=== PATIENT | female | born 1935 | race Caucasian/White ===

== ENCOUNTER 2022-08-03 07:00 | Inpatient (IN) | payer MEDICARE ==
--- NOTE | 2022-08-03 07:31 | ED ---
Fall HPI - General Chief Complaint: Fall Stated Complaint: Fall-Hip injury Time Seen by Provider: 08/03/22 07:01 Source: patient, EMS, RN notes reviewed Mode of arrival: EMS Limitations: physical limitation - History of Present Illness Initial Comments: This is an 87-year-old female presents emergency Department chief complaint of right hip pain, injury. Patient states she was coming back from the bathroom when she felt she lost her balance or her leg gave out falling onto her right hip. Patient denies having any head injury. Patient states that her only current complaint is right hip pain. Patient states that she was unable to get up and which staff came and helped her up. Patient has had no prior hip, knee surgery. Denies any back pain. Denies any chest pain or shortness of breath. Patient does have a history of hypertension, glaucoma, arthritis she did not take her blood pressure medicines this morning. - Related Data Home Medications Medication Instructions Recorded Confirmed Aspirin 81 mg PO DAILY 08/03/22 08/03/22 Atorvastatin [Lipitor] 40 mg PO DAILY 08/03/22 08/03/22 Calcium Carbonate 1,000 mg PO DAILY 08/03/22 08/03/22 Cholecalciferol [Vitamin D3 (25 50 mcg PO DAILY 08/03/22 08/03/22 Mcg = 1000 Iu)] Diclofenac Sodium Gel [Voltaren 2 gm TOPICAL QID PRN 08/03/22 08/03/22 Gel] Levothyroxine Sodium [Synthroid] 75 mcg PO DAILY 08/03/22 08/03/22 Losartan Potassium [Cozaar] 100 mg PO DAILY 08/03/22 08/03/22 Multivit-Min/Iron/Folic/Lutein 1 tab PO DAILY 08/03/22 08/03/22 [Centrum Silver Women Tablet] [place]-3/Dha/Epa/Fish Oil [Fish Oil 1 cap PO DAILY 08/03/22 08/03/22 1,000 mg Softgel] carvediloL [Coreg] 3.125 mg PO BID 08/03/22 08/03/22 hydroCHLOROthiazide 12.5 mg PO DAILY 08/03/22 08/03/22 Allergies Allergy/AdvReac Type Severity Reaction Status Date / Time shellfish derived [Shellfish] Allergy Rash/Hives Verified 08/03/22 08:31 Review of Systems ROS Statement: Those systems with pertinent positive or pertinent negative responses have been documented in the HPI. ROS Other: All systems not noted in ROS Statement are negative. 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 Absent: scleral icterus, conjunctival injection, periorbital swelling ENT exam: Present: normal exam, mucous membranes moist Respiratory exam: Present: normal lung sounds bilaterally. Absent: respiratory distress, wheezes, rales, rhonchi, stridor Cardiovascular Exam: Present: regular rate, normal rhythm, normal heart sounds. Absent: systolic murmur, diastolic murmur, rubs, gallop, clicks GI/Abdominal exam: Present: soft, normal bowel sounds. Absent: distended, tenderness, guarding, rebound, rigid Extremities exam: Present: other (There is shortening of the right leg, mild rotation, neurovascular intact there is diffuse tenderness of the right hip and pain with range of motion of the right hip very limited) Neurological exam: Present: alert, oriented X3, CN II-XII intact Course Vital Signs 08/03/22 08/03/22 07:02 08:31 Pulse Rate 65 57 L Respiratory 18 18 Rate Blood Pressure 155/101 188/89 O2 Sat by Pulse 100 99 Oximetry Medical Decision Making - Lab Data Result diagrams: 08/03/22 08:35 - EKG Data -: EKG Interpreted by Me EKG Comments: Was pt. sent in by a medical professional or institution (, PA, CABLE TV INSTALLER, urgent care, hospital, or fpc...) When possible be specific @ -no Did you speak to anyone other than the patient for history (EMS, parent, family, police, friend...)? What history was obtained from this source @ -EMS regarding prehospital care Did you review nursing and triage notes (agree or disagree)? Why? @ -I reviewed and agree with nursing and triage notes Were old charts reviewed (outside hosp., previous admission, EMS record, old EKG, old radiological studies, urgent care reports/EKG's, fpc records)? Report findings @ -No old charts were reviewed Differential Diagnosis (chest pain, altered mental status, abdominal pain women, abdominal pain men, vaginal bleeding, weakness, fever, dyspnea, syncope, headache, dizziness, GI bleed, back pain, seizure, CVA, palpatations, mental health, musculoskeletal)? @ -Fall, right hip fracture, hip contusion, right hip dislocation EKG interpreted by me (3pts min.). @ -EKG 48:19 sinus bradycardia rate of 56 DC 200/88 QT/QTC 434/424 X-rays interpreted by me (1pt min.). @ -None done CT interpreted by me (1pt min.). @ -None done U/S interpreted by me (1pt. min.). @ -None done What testing was considered but not performed or refused? (CT, X-rays, U/S, labs)? Why? @ -None What meds were considered but not given or refused? Why? @ -None Did you discuss the management of the patient with other professionals (professionals i.e. , PA, CABLE TV INSTALLER, lab, RT, psych nurse, social services assistant, payroll and benefits specialist, te acher, home school liaison officer, case advocate)? Give summary @ -Dr. Emerson for admission for right hip fracture] Was smoking cessation discussed for >3mins.? @ -No Was critical care preformed (if so, how long)? @ -No Were there social determinants of health that impacted care today? How? (Homelessness, low income, unemployed, alcoholism, drug addiction, transportation, low edu. Level, literacy, decrease access to med. care, half-way, rehab)? @ -No Was there de-escalation of care discussed even if they declined (Discuss DNR or withdrawal of care, Hospice)? DNR status @ -No What co-morbidities impacted this encounter? (DM, HTN, Smoking, COPD, CAD, Cancer, CVA, ARF, Chemo, Hep., AIDS, mental health diagnosis, sleep apnea, morbid obesity)? @ -Hypertension Was patient admitted / discharged? Hospital course, mention meds given and route, prescriptions, significant lab abnormalities, going to OR and other pertinent info. @ -Admitted patient has right hip fracture patient will be medically cleared patient is stable at this time. Undiagnosed new problem with uncertain prognosis? @ -No Drug Therapy requiring intensive monitoring for toxicity (Heparin, Nitro, Insulin, Cardizem)? @ -No Were any procedures done? @ -No Diagnosis/symptom? @ -Fall right IT fracture Acute, or Chronic, or Acute on Chronic? @ -Acute Uncomplicated (without systemic symptoms) or Complicated (systemic symptoms)? @ -Uncomplicated Side effects of treatment? @ -No Exacerbation, Progression, or Severe Exacerbation? @ -No Poses a threat to life or bodily function? How? (Chest pain, [place], MT, pneumonia, PE, COPD, DKA, ARF, appy, cholecystitis, CVA, Diverticulitis, Homicidal, Suicidal, threat to staff... and all critical care pts) @ -No Disposition Clinical Impression: Fall, Hip fracture, right Disposition: ADMITTED IP TO THIS [facility] Time of Disposition: 08:05
[2022-08-03] MEDS ORDERED: NALOXONE 0.4 MG/ML 1 ML VIAL IV PRN (08:05)
[2022-08-03] MEDS ORDERED: ONDANSETRON 4 MG/2 ML VIAL IVP PRN (08:05)
[2022-08-03] MEDS ORDERED: HYDROcodone/APAP 5-325MG 1 EACH TAB PO PRN (08:05)
--- NOTE | 2022-08-03 08:21 | XR ---
EXAMINATION TYPE: XR Hip RT and AP Pelvis DATE OF EXAM: 08/03/2022 CLINICAL HISTORY: pain TECHNIQUE: AP and frogleg views of the right hip are obtained. No view of the pelvis is also submitt ed. COMPARISON: None. FINDINGS: There is a three-part right sided intertrochanteric fracture. No additional fractures seen. Mild degenerative joint space narrowing. IMPRESSION: 1. There is a three-part right sided intertrochanteric fracture. ICD 10 FRACTURE, INITIAL EVALUATION
[2022-08-03] MEDS: HYDROmorphone 0.5 MG/0.5 ML SYRINGE IVP PRN ×4 (08:34→22:54)
[2022-08-03 08:59] LABS: ALT 23 U/L (4-34); AST 26 U/L (14-36); African American GFR (CKD) >90 (>60 ml/min/1.73 sqM); Albumin 3.3 g/dL (3.5-5.0); Alkaline Phosphatase 80 U/L (38-126); Anion Gap 5 mmol/L; Blood Urea Nitrogen 17 mg/dL (7-17); Calcium 8.5 mg/dL (8.4-10.2); Carbon Dioxide 27 mmol/L (22-30); Chloride 105 mmol/L (98-107); Glucose 123 mg/dL (74-99); Non-African American GFR(CKD) 85 (>60 ml/min/1.73 sqM); Potassium 3.4 mmol/L (3.5-5.1); Sodium 137 mmol/L (137-145); Total Bilirubin 0.4 mg/dL (0.2-1.3); Total Protein 6.1 g/dL (6.3-8.2)
--- NOTE | 2022-08-03 09:00 | XR ---
EXAMINATION TYPE: XR chest 1V DATE OF EXAM: 08/03/2022 HISTORY: Shortness of breath. COMPARISON: None TECHNIQUE: Single view of the chest is submitted. FINDINGS: Demonstrated are scattered senescent parenchymal change. There is no evidence for focal infiltrate. The heart is stable. Hilar and mediastinal structures are within normal limits. Degenerative changes are seen of the dorsal spine. IMPRESSION: 1. Chronic changes without evidence for acute pulmonary disease.
[2022-08-03 09:14] LABS: Prothrombin Time 10.7 sec (9.0-12.0)
[2022-08-03 09:16] LABS: Basophils % (A) 1 %; Eosinophils # (A) 0.1 k/uL (0-0.7); Eosinophils % (A) 2 %; HCT 34.7 % (34.0-46.0); HGB 11.8 gm/dL (11.4-16.0); Lymphocytes % (A) 15 %; MCHC 34.1 g/dL (31.0-37.0); MCV 90.9 fL (80.0-100.0); Mean Platelet Volume 9.3; Monocytes # (A) 0.4 k/uL (0-1.0); Monocytes % (A) 7 %; Neutrophils # (A) 4.7 k/uL (1.3-7.7); Neutrophils % (A) 74 %; Platelet Count 100 k/uL (150-450); RBC 3.82 m/uL (3.80-5.40); WBC 6.4 k/uL (3.8-10.6)
[2022-08-03 09:25] LABS: Partial Thromboplastin Time 19.9 sec (22.0-30.0)
[2022-08-03 10:00] LABS: Appearance,Urine Clear (Clear); Bilirubin,Urine Negative (Negative); Blood,Urine Negative (Negative); Color,Urine Light Yellow; Glucose,Urine (UA) Negative (Negative); Ketones,Urine Negative (Negative); Leukocyte Esterase,Urine Negative (Negative); Nitrite,Urine Negative (Negative); Protein,Urine Negative (Negative); Specific Gravity,Urine 1.007 (1.001-1.035); Urobilinogen,Urine <2.0 mg/dL (<2.0)
[2022-08-03] MEDS ORDERED: hydroCHLOROthiazide 12.5 MG CAP PO SCH (10:29)
[2022-08-03] MEDS: ATORVASTATIN 40 MG TAB PO SCH (11:07)
[2022-08-03] MEDS: carvediloL 3.125 MG TAB PO SCH ×2 (11:07→17:51)
--- NOTE | 2022-08-03 13:04 | P.HPOR ---
History of Present Illness H&P Date: 08/03/22 Chief Complaint: Right hip fracture. This is a pleasant 87-year-old female who fell when getting up to the bathroom in the middle the night. She states that her right leg gave out on her causing her to fall onto her right hip. She was brought to the emergency department via EMS and we are consulted for orthopedic evaluation. She is admitted to our service for surgical intervention and care. Past Medical History Past Medical History: Hypertension Additional Past Medical History / Comment(s): osteopoenia, hypothyroid, arthritis Additional Past Surgical History / Comment(s): Melanoma removed from face 2021 Smoking Status: Never smoker Past Alcohol Use History: None Reported Past Drug Use History: None Reported Medications and Allergies Home Medications Medication Instructions Recorded Confirmed Type Aspirin 81 mg PO DAILY 08/03/22 08/03/22 History Atorvastatin [Lipitor] 40 mg PO DAILY 08/03/22 08/03/22 History Calcium Carbonate 1,000 mg PO DAILY 08/03/22 08/03/22 History Cholecalciferol [Vitamin D3 (25 50 mcg PO DAILY 08/03/22 08/03/22 History Mcg = 1000 Iu)] Diclofenac Sodium Gel [Voltaren 2 gm TOPICAL QID PRN 08/03/22 08/03/22 History Gel] Levothyroxine Sodium [Synthroid] 75 mcg PO DAILY 08/03/22 08/03/22 History Losartan Potassium [Cozaar] 100 mg PO DAILY 08/03/22 08/03/22 History Multivit-Min/Iron/Folic/Lutein 1 tab PO DAILY 08/03/22 08/03/22 History [Centrum Silver Women Tablet] [place]-3/Dha/Epa/Fish Oil [Fish Oil 1 cap PO DAILY 08/03/22 08/03/22 History 1,000 mg Softgel] carvediloL [Coreg] 3.125 mg PO BID 08/03/22 08/03/22 History hydroCHLOROthiazide 12.5 mg PO DAILY 08/03/22 08/03/22 History Allergies Allergy/AdvReac Type Severity Reaction Status Date / Time shellfish derived [Shellfish] Allergy Rash/Hives Verified 08/03/22 08:31 Physical Examination This is an 79-year-old female in no acute distress. She is alert and oriented 3. Exam of the head and neck reveal no obvious deformity. She has full cervical spine motion without difficulty or pain. She is nontender over the cervical spine or paraspinal musculature. Exam of the upper extremities reveals no obvious deformity. She has fairly good motion to bilateral shoulders, elbows, wrists and fingers. Neurovascular status to the upper extremities is intact. Exam of the lower extremity reveals shortening and external rotation to the right leg. She has full foot and ankle motion bilaterally without difficulty or pain. Pedal pulses are +2/4 bilaterally. Neurovascular status to the lower extremities is intact. Results X-rays of the pelvis and right hip reveal a comminuted three-part Intertrochanteric fracture of the right hip with displacement. No other fractures identified. - Labs Labs: Abnormal Lab Results - Last 24 Hours (Table) 08/03/22 08/03/22 08/03/22 Range/Units 08:35 08:35 08:35 Plt Count 100 L (150-450) k/uL APTT 19.9 L (22.0-30.0) sec Potassium 3.4 L (3.5-5.1) mmol/L Glucose 123 H (74-99) mg/dL Total Protein 6.1 L (6.3-8.2) g/dL Albumin 3.3 L (3.5-5.0) g/dL H & H 08/03/22 Range/Units 08:35 Hgb 11.8 (11.4-16.0) gm/dL Hct 34.7 (34.0-46.0) % Coagulation 08/03/22 Range/Units 08:35 INR 1.0 (<1.2) Result Diagrams: 08/03/22 08:35 08/03/22 08:35 Assessment and Plan (1) Intertrochanteric fracture of right hip Current Visit: Yes Status: Acute Code(s): S72.141A - DISPLACED INTERTROCHAN TERIC FRACTURE OF RIGHT FEMUR, INIT SNOMED Code(s): 448193578 (2) Hip fracture, right Current Visit: Yes Status: Acute Code(s): S72.001A - FRACTURE OF UNSP PART OF NECK OF RIGHT FEMUR, INIT SNOMED Code(s): 347066427 Plan: The clinical and x-ray findings are discussed with the patient. She will be admitted to our service for surgical intervention. It is recommended she undergo closed reduction with insertion of intertrochanteric nail of the right hip. We are waiting medical clearance. She is tentatively scheduled for tomorrow morning for surgery. We discussed the potential need for inpatient rehabilitation postoperatively.
[2022-08-03] MEDS ORDERED: POTASSIUM CHLORIDE ER 20 MEQ TAB.ER PO STA (13:48)
[2022-08-03] MEDS ORDERED: DEXTROSE 50% SYRINGE 50 ML IVP PRN ×2 (13:49)
--- NOTE | 2022-08-03 13:52 | P.CONS ---
History of Present Illness - Reason for Consult Consult date: 08/03/22 - History of Present Illness Patient is a 87-year-old female with history of hypertension, hypothyroidism, dyslipidemia presenting after a fall. She claims that happened when she got up in the middle of the night to go to the bathroom. She claims that her right leg gave out causing her to fall to her right hip. She currently has significant pain in the right hip, but denies any chest pain, shortness of breath, abdominal pain, nausea, vomiting, diarrhea, constipation, or urinary complaints. She had a urinary catheter placed while in the ED. She has been hypertensive while in the ED, normal pulse rate, saturating well on room air. Laboratory workup was significant for platelet count upon., Po tassium of 3.4, glucose 123, urinalysis negative. Chest x-ray showed no acute process. EKG showed sinus bradycardia. Right hip x-ray showed three-part right-sided intertrochanteric fracture. Patient admitted to orthopedic surgery, [facility] has been consulted for medical management.. Pertinent positives and negatives as discussed in HPI, a complete review of systems was performed and all other systems are negative. Patient seen and examined at bedside. Vital signs reviewed General: nontoxic, no distress, appears at stated age Derm: warm, dry Head: atraumatic, normocephalic, symmetric Eyes: EOMI, no lid lag, anicteric sclera, pupils equal round reactive to light ENT: Nose and ears atraumatic Neck: No thyromegaly, supple Mouth: no lip lesion, mucus membranes moist Cardiovascular: S1S2 reg, no murmur, no edema Lungs: clear to auscultation bilateral, no rhonchi, no rales, no wheeze, no accessory muscle use Abdominal: soft, nontender to palpation, no guarding, no appreciable organomegaly Ext: Right lower extremity unable to move due to pain, externally rotated Neuro: CN II-XII grossly intact Psych: Alert, oriented, appropriate affect Assessment/Plan: Preoperative evaluation Fall Traumatic right intertrochanteric fracture Uncontrolled hypertension Hypokalemia Hyperglycemia Sinus bradycardia Hypothyroidism Dyslipidemia -Based on NSQIP, she has below average risk for her age for serious complications (6.1%), any complication (7.9%). -She does have a high risk of discharge to nursing or rehab facility at 67.5% -She has a history of TIA, but no residual deficits -Losartan and hydrochlorothiazide held for now, as it can increase risk for renal complication and intraoperative hypotension -Continue carvedilol 3.125 twice a day, started patient on amlodipine 5 mg daily -Her hypertension may also be related to pain -it may be useful to discontinue hydrochlorothiazide altogether, as it is a high risk medication for geriatric population. -Currently pain controlled on IV Dilaudid, oral [place] -Oral potassium 40 mEq ordered -Sliding scale insulin ordered, A1c pending -Sinus bradycardia likely the setting of beta manolo, asymptomatic -Continue levothyroxine and atorvastatin -Patient is medically optimized for surgery tomorrow Thank you for allowing us to participate in the care of this pleasant patient. Do not hesitate to contact us with questions. Someone can be reached from the [facility] hospitalist group all hours of the day at [phone] or via [facility]. Past Medical History Past Medical History: Hypertension Additional Past Medical History / Comment(s): osteopoenia, hypothyroid, arthritis Additional Past Surgical History / Comment(s): Melanoma removed from face 2021 Smoking Status: Never smoker Past Alcohol Use History: None Reported Past Drug Use History: None Reported Medications and Allergies Home Medications Medication Instructions Recorded Confirmed Type Aspirin 81 mg PO DAILY 08/03/22 08/03/22 History Atorvastatin [Lipitor] 40 mg PO DAILY 08/03/22 08/03/22 History Calcium Carbonate 1,000 mg PO DAILY 08/03/22 08/03/22 History Cholecalciferol [Vitamin D3 (25 50 mcg PO DAILY 08/03/22 08/03/22 History Mcg = 1000 Iu)] Diclofenac Sodium Gel [Voltaren 2 gm TOPICAL QID PRN 08/03/22 08/03/22 History Gel] Levothyroxine Sodium [Synthroid] 75 mcg PO DAILY 08/03/22 08/03/22 History Losartan Potassium [Cozaar] 100 mg PO DAILY 08/03/22 08/03/22 History Multivit-Min/Iron/Folic/Lutein 1 tab PO DAILY 08/03/22 08/03/22 History [Centrum Silver Women Tablet] [place]-3/Dha/Epa/Fish Oil [Fish Oil 1 cap PO DAILY 08/03/22 08/03/22 History 1,000 mg Softgel] carvediloL [Coreg] 3.125 mg PO BID 08/03/22 08/03/22 History hydroCHLOROthiazide 12.5 mg PO DAILY 08/03/22 08/03/22 History Allergies Allergy/AdvReac Type Severity Reaction Status Date / Time shellfish derived [Shellfish] Allergy Rash/Hives Verified 08/03/22 08:31 Physical Exam Vitals: Vital Signs Pulse Resp BP Pulse Ox 08/03/22 10:26 60 18 171/80 98 08/03/22 08:31 57 L 18 188/89 99 08/03/22 07:02 65 18 155/101 100 Intake and Output 08/02/22 08/03/22 08/03/22 22:59 06:59 14:59 Other: Weight 61.235 kg Results CBC & Chem 7: 08/03/22 08:35 08/03/22 08:35 Labs: Abnormal Lab Results - Last 24 Hours (Table) 08/03/22 08/03/22 08/03/22 Range/Units 08:35 08:35 08:35 Plt Count 100 L (150-450) k/uL APTT 19.9 L (22.0-30.0) sec Potassium 3.4 L (3.5-5.1) mmol/L Glucose 123 H (74-99) mg/dL Total Protein 6.1 L (6.3-8.2) g/dL Albumin 3.3 L (3.5-5.0) g/dL
[2022-08-03] MEDS: amLODIPine 5 MG TAB PO SCH (14:00)
[2022-08-03 14:27] LABS: Glucose,Whole Blood 133 mg/dL (70-110)
[2022-08-03 16:56] LABS: Glucose,Whole Blood 139 mg/dL (70-110)
[2022-08-03] MEDS ORDERED: INSULIN ASPART (NovoLOG) 100 UNIT/ML VIAL SQ SCH (17:30)
[2022-08-03] MEDS ORDERED: carvediloL 3.125 MG TAB PO SCH (17:30)
[2022-08-04] MEDS: HYDROmorphone 0.5 MG/0.5 ML SYRINGE IVP PRN ×5 (03:49→21:52)
[2022-08-04] MEDS: carvediloL 3.125 MG TAB PO SCH ×2 (06:47→16:31)
[2022-08-04] MEDS: LEVOTHYROXINE 75 MCG TAB PO SCH (06:47)
[2022-08-04] MEDS: amLODIPine 5 MG TAB PO SCH (07:55)
[2022-08-04] MEDS: CHOLECALCIFEROL 25 MCG (1000 IU) TABLET PO SCH (07:56)
[2022-08-04] MEDS: ATORVASTATIN 40 MG TAB PO SCH (07:56)
[2022-08-04] MEDS: CALCIUM CARBONATE 500 MG CHEWABLE PO SCH (07:56)
[2022-08-04] MEDS ORDERED: hydroCHLOROthiazide 12.5 MG CAP PO SCH (09:00)
[2022-08-04] MEDS ORDERED: LOSARTAN 50 MG TAB PO SCH (09:00)
[2022-08-04] MEDS ORDERED: ATORVASTATIN 40 MG TAB PO SCH (09:00)
--- NOTE | 2022-08-04 11:19 | P.PN ---
Subjective Progress Note Date: 08/04/22 Subjective: Patient seen and examined at bedside. No acute events overnight. She claims that she continues to have pain in her right hip, but denies any other pain, or complaints. Pertinent positives and negatives as discussed above, a complete review of systems was performed and all other systems are negative. Vitals Signs Reviewed. General: nontoxic, no distress, appears at stated age Derm: warm, dry Head: atraumatic, normocephalic, symmetric Eyes: EOMI, no lid lag, anicteric sclera, pupils equal round reactive to light ENT: Nose and ears atraumatic Neck: No thyromegaly, supple Mouth: no lip lesion, mucus membranes moist Cardiovascular: S1S2 reg, no murmur, no edema Lungs: clear to auscultation bilateral, no rhonchi, no rales, no wheeze, no accessory muscle use Abdominal: soft, nontender to palpation, no guarding, no appreciable organomegaly Ext: Right lower extremity unable to move due to pain, externally rotated Neuro: CN II-XII grossly intact Psych: Alert, oriented, appropriate affect Data Reviewed Today: No new labs Blood pressure has been stable around systolic of 117/69 Assessment and Plan: Preoperative evaluation Fall Traumatic right intertrochanteric fracture Uncontrolled hypertension Hypokalemia on admission Hyperglycemia, prediabetes Hypothyroidism Dyslipidemia -Based on NSQIP, she has below average risk for her age for serious complicati ons (6.1%), any complication (7.9%). -She does have a high risk of discharge to nursing or rehab facility at 67.5% -She has a history of TIA, but no residual deficits -Has a history of hysterectomy, no postsurgical complications -Losartan and hydrochlorothiazide held for now, as it can increase risk for renal complication and intraoperative hypotension -Continue carvedilol 3.125 twice a day, started patient on amlodipine 5 mg daily (although patient does have a history of lower extremity edema in the past, but she would like to try again) -Blood pressure not well controlled, discontinue hydrochlorothiazide at the time discharge -Currently pain controlled on IV Dilaudid, oral [place] -Not on any insulin therapy -Continue levothyroxine and atorvastatin -Patient is medically optimized for surgery today Resolved: Sinus bradycardia Thank you for allowing us to participate in the care of this pleasant patient. Do not hesitate to contact us with questions. Someone can be reached from the [facility] hospitalist group all hours of the day at [phone] or via [employer]. Objective - Vital Signs Vital signs: Vital Signs Temp 98.0 F 08/04/22 07:20 Pulse 71 08/04/22 07:20 Resp 16 08/04/22 07:20 BP 106/59 08/04/22 07:20 Pulse Ox 96 08/04/22 07:20 FiO2 Intake & Output 08/03/22 08/04/22 08/04/22 18:59 06:59 18:59 Output Total 100 1500 Balance -100 -1500 Weight 61.235 kg Output: Urine 100 1500 Other: Voiding Method Indwelling Catheter Indwelling Catheter - Labs CBC & Chem 7: 08/03/22 08:35 08/03/22 08:35 Labs: Abnormal Lab Results - Last 24 Hours (Table) 08/03/22 08/03/22 08/03/22 Range/Units 08:35 14:24 16:56 POC Glucose (mg/dL) 133 H 139 H (70-110) mg/dL Hemoglobin A1c 6.1 H (0.0-6.0) %
[2022-08-04] MEDS ORDERED: TRANEXAMIC ACID 1,000 MG in SODIUM CHLORIDE 0.9% 100 ML IVPB PRN (12:27)
[2022-08-04] MEDS ORDERED: HYDROmorphone 0.5 MG/0.5 ML SYRINGE IVP PRN ×2 (12:29)
[2022-08-04] MEDS ORDERED: NALOXONE 0.4 MG/ML 1 ML VIAL IV PRN (12:29)
[2022-08-04] MEDS ORDERED: MAGNESIUM HYDROXIDE 2,400 MG/10 ML CUP PO PRN (12:29)
[2022-08-04] MEDS ORDERED: PROPOFOL 10 MG/ML 20 ML VIAL IV ONE (12:45)
[2022-08-04] MEDS ORDERED: TRANEXAMIC ACID IN NACL,ISO-OS 1,000 MG/100 ML BAG ONE (12:45)
[2022-08-04] MEDS ORDERED: MIDAZOLAM 2 MG/2 ML VIAL ONE (12:45)
[2022-08-04] MEDS ORDERED: LACTATED RINGERS 1,000 ML IV ONE (12:45)
[2022-08-04] MEDS ORDERED: fentaNYL (PF) 50 MCG/ML 2 ML AMP ONE (12:45)
[2022-08-04] MEDS ORDERED: KETAMINE 10 MG/ML 20 ML VIAL ONE (12:45)
--- NOTE | 2022-08-04 14:48 | XR ---
Fluoroscopy INDICATION: Pain FINDINGS: Fluoroscopy time: 57 seconds. DAP: 4.0246 mGycm^2 Images obtained: 3. IMPRESSIONS: 1. Documentation of fluoroscopy.
--- NOTE | 2022-08-04 14:50 | FL ---
Fluoroscopy INDICATION: Pain FINDINGS: Fluoroscopy time: 57 seconds. DAP: 4.0246 mGycm^2 Images obtained: 0. IMPRESSIONS: 1. Documentation of fluoroscopy.
[2022-08-04] MEDS: LACTATED RINGERS 1,000 ML IV SCH ×2 (15:32→21:52)
[2022-08-04 16:37] LABS: Basophils % (A) 0 %; Eosinophils % (A) 0 %; HCT 26.8 % (34.0-46.0); Lymphocytes # (A) 0.9 k/uL (1.0-4.8); Lymphocytes % (A) 8 %; MCH 30.3 pg (25.0-35.0); MCHC 32.2 g/dL (31.0-37.0); MCV 93.9 fL (80.0-100.0); Mean Platelet Volume 9.2; Monocytes % (A) 9 %; Neutrophils # (A) 8.8 k/uL (1.3-7.7); Neutrophils % (A) 81 %; RBC 2.86 m/uL (3.80-5.40); RDW 14.2 % (11.5-15.5); WBC 10.9 k/uL (3.8-10.6)
[2022-08-04 16:51] LABS: HGB 8.6 gm/dL (11.4-16.0)
[2022-08-04 17:31] LABS: Platelet Count 76 k/uL (150-450)
[2022-08-04] MEDS ORDERED: TEMAZEPAM 15 MG CAP PO PRN (21:00)
[2022-08-04] MEDS: SENNOSIDES-DOCUSATE SODIUM 1 EACH TAB PO SCH (21:03)
[2022-08-04] MEDS: ASPIRIN 81 MG PO SCH (21:03)
[2022-08-05] MEDS: HYDROmorphone 0.5 MG/0.5 ML SYRINGE IVP PRN ×6 (01:43→22:13)
[2022-08-05] MEDS: LEVOTHYROXINE 75 MCG TAB PO SCH (06:46)
[2022-08-05] MEDS: carvediloL 3.125 MG TAB PO SCH ×2 (06:46→22:16)
[2022-08-05 08:50] LABS: African American GFR (CKD) >90 (>60 ml/min/1.73 sqM); Anion Gap 2 mmol/L; Blood Urea Nitrogen 17 mg/dL (7-17); Calcium 7.7 mg/dL (8.4-10.2); Carbon Dioxide 26 mmol/L (22-30); Chloride 102 mmol/L (98-107); Glucose 111 mg/dL (74-99); Non-African American GFR(CKD) 82 (>60 ml/min/1.73 sqM); Sodium 130 mmol/L (137-145)
[2022-08-05] MEDS: CALCIUM CARBONATE 500 MG CHEWABLE PO SCH (09:46)
[2022-08-05] MEDS: CHOLECALCIFEROL 25 MCG (1000 IU) TABLET PO SCH (09:47)
[2022-08-05] MEDS: ASPIRIN 81 MG PO SCH ×2 (09:47→22:13)
[2022-08-05] MEDS: ATORVASTATIN 40 MG TAB PO SCH (09:47)
[2022-08-05] MEDS: amLODIPine 5 MG TAB PO SCH (09:47)
--- NOTE | 2022-08-05 11:16 | P.PN ---
Subjective Progress Note Date: 08/05/22 Principal diagnosis: Intertrochanteric fracture right hip. Status post closed reduction with insertion of intertrochanteric nail right hip. This is a pleasant 87-year-old female who fell when getting up to the bathroom in the middle the night. She states that her right leg gave out on her causing her to fall onto her right hip. She was brought to the emergency department via EMS and we are consulted for orthopedic evaluation. She is admitted to our service for surgical intervention and care. The patient is postop day #1 status post close reduction and insertion of inter trochanteric nail of the right hip. She has no new complaints or concerns today. She denies nausea, vomiting or diarrhea. Vital signs are stable. Objective - Vital Signs Vital signs: Vital Signs Temp 97.6 F 08/05/22 07:55 Pulse 74 08/05/22 07:55 Resp 17 08/05/22 07:55 BP 125/65 08/05/22 07:55 Pulse Ox 91 L 08/05/22 07:55 FiO2 Intake & Output 08/04/22 08/05/22 08/05/22 18:59 06:59 18:59 Intake Total 900 Output Total 350 150 Balance 550 -150 Intake: IV 900 Output: Urine 200 150 Estimated Blood Loss 150 Other: Voiding Method Indwelling Catheter - Exam This is a pleasant 87-year-old female in no acute distress. She is alert and oriented 3. She is having difficulty moving in bed. She states that she feels weak. Exam of the right hip reveals that her dressings are clean, dry and intact. She has full foot and ankle motion without difficulty or pain. Neurovascular status to the lower extremity is intact. - Labs CBC & Chem 7: 08/04/22 15:57 08/05/22 08:10 Labs: Abnormal Lab Results - Last 24 Hours (Table) 08/04/22 08/05/22 Range/Units 15:57 08:10 WBC 10.9 H (3.8-10.6) k/uL RBC 2.86 L (3.80-5.40) m/uL Hgb 8.6 L D (11.4-16.0) gm/dL Hct 26.8 L (34.0-46.0) % Plt Count 76 L (150-450) k/uL Neutrophils # 8.8 H (1.3-7.7) k/uL Lymphocytes # 0.9 L (1.0-4.8) k/uL Sodium 130 L (137-145) mmol/L Glucose 111 H (74-99) mg/dL Calcium 7.7 L (8.4-10.2) mg/dL Assessment and Plan (1) Intertrochanteric fracture of right hip Current Visit: Yes Status: Acute Code(s): S72.141A - DISPLACED INTERTROCHANTERIC FRACTURE OF RIGHT FEMUR, INIT SNOMED Code(s): 039662456 (2) Hip fracture, right Current Visit: Yes Status: Acute Code(s): S72.001A - FRACTURE OF UNSP PART OF NECK OF RIGHT FEMUR, INIT SNOMED Code(s): 589986404 Plan: The clinical findings are discussed with the patient. We will begin physical therapy today. We will plan discharged to inpatient rehab when cleared medica lly and placement was arranged.
--- NOTE | 2022-08-05 11:17 | P.PN ---
Subjective Progress Note Date: 08/05/22 Subjective: Patient seen and examined at bedside. No acute events overnight. She claims that she continues to have pain in her right hip, but denies any other pain, or complaints. She has not gotten out of the bed since surgery. Pertinent positives and negatives as discussed above, a complete review of systems was performed and all other systems are negative. Vitals Signs Reviewed. General: nontoxic, no distress, appears at stated age Derm: warm, dry, dressing appeared clean, dry, intact Head: atraumatic, normocephalic, symmetric Eyes: EOMI, no lid lag, anicteric sclera, pupils equal round reactive to light ENT: Nose and ears atraumatic Neck: No thyromegaly, supple Mouth: no lip lesion, mucus membranes moist Cardiovascular: S1S2 reg, no murmur, no edema Lungs: clear to auscultation bilateral, no rhonchi, no rales, no wheeze, no accessory muscle use Abdominal: soft, nontender to palpation, no guarding, no appreciable organomegaly Ext: No contractures Neuro: CN II-XII grossly intact Psych: Alert, oriented, appropriate affect Data Reviewed Today: Sodium 130, potassium 4, glucose 111, creatinine 0.6, CBC pending, will be reviewed once resulted Assessment and Plan: Fall Traumatic right intertrochanteric fracture status post surgery Hypertension Hyponatremia Hyperglycemia, prediabetes -Status post surgery -PT/OT -Aspirin 81 mg twice a day for DVT prophylaxis -Currently pain controlled on IV Dilaudid, oral Pinnacle -Losartan restarted at a lower dose -Continue carvedilol 3.125 twice a day, started patient on amlodipine 5 mg daily (although patient does have a history of lower extremity edema in the past, but she would like to try again) -discontinue hydrochlorothiazide at the time discharge -Hyponatremia likely the setting of poor oral intake, continue LR 100 cc an hour, repeat BMP tomorrow -Not on any insulin therapy Resolved: Sinus bradycardia Hypokalemia Chronic: Hypothyroidism Dyslipidemia Thank you for allowing us to participate in the care of this pleasant patient. Do not hesitate to contact us with questions. Someone can be reached from the [facility] hospitalist group all hours of the day at [phone] or via perfect serve. Objective - Vital Signs Vital signs: Vital Signs Temp 97.6 F 08/05/22 07:55 Pulse 74 08/05/22 07:55 Resp 17 08/05/22 07:55 BP 125/65 08/05/22 07:55 Pulse Ox 91 L 08/05/22 07:55 FiO2 Intake & Output 08/04/22 08/05/22 08/05/22 18:59 06:59 18:59 Intake Total 900 Output Total 350 150 Balance 550 -150 Intake: IV 900 Output: Urine 200 150 Estimated Blood Loss 150 Other: Voiding Method Indwelling Catheter - Labs CBC & Chem 7: 08/04/22 15:57 08/05/22 08:10 Labs: Abnormal Lab Results - Last 24 Hours (Table) 08/04/22 08/05/22 Range/Units 15:57 08:10 WBC 10.9 H (3.8-10.6) k/uL RBC 2.86 L (3.80-5.40) m/uL Hgb 8.6 L D (11.4-16.0) gm/dL Hct 26.8 L (34.0-46.0) % Plt Count 76 L (150-450) k/uL Neutrophils # 8.8 H (1.3-7.7) k/uL Lymphocytes # 0.9 L (1.0-4.8) k/uL Sodium 130 L (137-145) mmol/L Glucose 111 H (74-99) mg/dL Calcium 7.7 L (8.4-10.2) mg/dL
[2022-08-05] MEDS: LOSARTAN 50 MG TAB PO SCH (14:36)
--- NOTE | 2022-08-05 15:46 | P.OP ---
Date of Procedure: 08/04/22 Preoperative Diagnosis: RIght hip intertrochanteric fracture Postoperative Diagnosis: same Procedure(s) Performed: Right hip cephalomedullary nail Implants: Gracia gamma nail, short 100mm lag screw 35mm distal screw Anesthesia: spinal Surgeon: Ingrid Emerson Estimated Blood Loss (ml): 200 Pathology: none sent Condition: stable Disposition: PACU Indications for Procedure: Patient had a ground level fall sustained an unstable intertrochanteric hip fracture. Description of Procedure: The patient, operative extremity, and procedure were identified in the preop holding area. After informed consent was obtained, the patient was brought back to the OR. Patient recieved a spinal block and was moved to the Jacquelin table. The hip was reduced with the aid of the traction table. The leg was then prepped and draped in normal sterile fashion. A time out was performed. A 5cm incision prox and posterior to the greater trochanter was made. The guide wire was introduced into the starting point on the tip of the greater trochanter in line with the femur. This was confirmed on orthogonal views. The wire was advanced. The opening reamer was used over the guidewire. The reamer and the guide wire was removed. A ball tip wire was then inserted into the femur. Intramedullary placement was confirmed on orthoganal views. Serial reamers up to a 13mm diameter were then utilized over the wire. The nail was then attached to the jig and inserted into the femur to the appropriate depth. The cephalomedullary guide wire was inserted using the tripple sleeve canulas. The placement of the wire was center center on AP and lateral views and advance to within 5mm of the articular surface. This was measured as 90mm and the cannulated drill was then used. A 90mm lag screw was selected and inserted. tip to apex was less than 25mm. The sleeves were removed and attention turned to the distal screw. Traction was let off the jacquelin table. Using the jig, a 35.5mm screw was inserted into the static hole of the nail. Final views demonstrated acceptable alignment of the fracture with good hardware placement. The wounds were closed with 2.0 vicryl, 4.0 monocryl, and skin glue. Wounds were dressed with gauze and tegaderm. Patient was aroused by the anesthesia team and brought back to PACU in stable condition.
[2022-08-05] MEDS: LACTATED RINGERS 1,000 ML IV SCH (19:59)
[2022-08-05] MEDS: SENNOSIDES-DOCUSATE SODIUM 1 EACH TAB PO SCH (22:13)
[2022-08-06] MEDS: HYDROmorphone 0.5 MG/0.5 ML SYRINGE IVP PRN ×3 (01:21→09:46)
[2022-08-06] MEDS: carvediloL 3.125 MG TAB PO SCH ×2 (05:11→17:01)
[2022-08-06] MEDS: LEVOTHYROXINE 75 MCG TAB PO SCH (05:11)
[2022-08-06] MEDS: LACTATED RINGERS 1,000 ML IV SCH ×2 (06:22→16:58)
[2022-08-06 09:27] LABS: African American GFR (CKD) 100.2 (60.0-200.0); Anion Gap 5.4 mmol/L (10.00-18.00); BUN/Creat Ratio 34.6 Ratio (12.00-20.00); Blood Urea Nitrogen 17.3 mg/dL (9.0-27.0); Calcium 7.8 mg/dL (8.7-10.3); Carbon Dioxide 24.6 mmol/L (20.0-27.5); Non-African American GFR(CKD) 86.4 (60.0-200.0); Potassium 3.8 mmol/L (3.5-5.5)
[2022-08-06] MEDS: amLODIPine 5 MG TAB PO SCH (09:40)
[2022-08-06] MEDS: CALCIUM CARBONATE 500 MG CHEWABLE PO SCH (09:40)
[2022-08-06] MEDS: LOSARTAN 50 MG TAB PO SCH (09:41)
[2022-08-06] MEDS: ATORVASTATIN 40 MG TAB PO SCH (09:41)
[2022-08-06] MEDS: CHOLECALCIFEROL 25 MCG (1000 IU) TABLET PO SCH (09:41)
[2022-08-06] MEDS: ASPIRIN 81 MG PO SCH ×2 (09:41→21:53)
[2022-08-06 12:48] LABS: Basophils % (A) 0 %; Eosinophils % (A) 0 %; HCT 22.3 % (34.0-46.0); HGB 7.4 gm/dL (11.4-16.0); Lymphocytes # (A) 1.1 k/uL (1.0-4.8); Lymphocytes % (A) 10 %; MCH 30.8 pg (25.0-35.0); MCHC 33.1 g/dL (31.0-37.0); MCV 93.1 fL (80.0-100.0); Mean Platelet Volume 10.1; Monocytes # (A) 0.8 k/uL (0-1.0); Monocytes % (A) 7 %; Neutrophils # (A) 9.4 k/uL (1.3-7.7); Neutrophils % (A) 81 %; RDW 14.5 % (11.5-15.5); WBC 11.7 k/uL (3.8-10.6)
[2022-08-06 12:58] LABS: Platelet Count 50 k/uL (150-450)
--- NOTE | 2022-08-06 13:06 | P.PN ---
Subjective Progress Note Date: 08/06/22 Principal diagnosis: Intertrochanteric fracture right hip. Status post closed reduction with insertion of intertrochanteric nail right hip. This is a pleasant 87-year-old female who fell when getting up to the bathroom in the middle the night. She states that her right leg gave out on her causing her to fall onto her right hip. She was brought to the emergency department via EMS and we are consulted for orthopedic evaluation. She is admitted to our service for surgical intervention and care. The patient is postop day #2 status post close reduction and insertion of inter trochanteric nail of the right hip. She has no new complaints or concerns today. She denies nausea, vomiting or diarrhea. Vital signs are stable. Objective - Vital Signs Vital signs: Vital Signs Temp 98.1 F 08/06/22 08:15 Pulse 75 08/06/22 08:15 Resp 18 08/06/22 08:15 BP 115/62 08/06/22 08:15 Pulse Ox 96 08/06/22 08:15 FiO2 Intake & Output 08/05/22 08/06/22 08/06/22 18:59 06:59 18:59 Output Total 450 500 Balance -450 -500 Output: Urine 450 500 Other: Voiding Method Indwelling Catheter - Exam This is a pleasant 87-year-old female in no acute distress. She is alert and oriented 3. Family is present at bedside. The patient is sitting up in a chair having lunch. Exam of the right hip reveals that her dressings are clean, dry and intact. She has full foot and ankle motion without difficulty or pain. Neurovascular status to the lower extremity is intact. - Labs CBC & Chem 7: 08/06/22 12:27 08/06/22 04:43 Labs: Abnormal Lab Results - Last 24 Hours (Table) 08/06/22 08/06/22 Range/Units 04:43 12:27 WBC 11.7 H (3.8-10.6) k/uL RBC 2.40 L (3.80-5.40) m/uL Hgb 7.4 L (11.4-16.0) gm/dL Hct 22.3 L (34.0-46.0) % Plt Count 50 L (150-450) k/uL Neutrophils # 9.4 H (1.3-7.7) k/uL Sodium 132 L (135-145) mmol/L Anion Gap 5.40 L (10.00-18.00) mmol/L Creatinine 0.5 L (0.6-1.5) mg/dL BUN/Creatinine Ratio 34.60 H (12.00-20.00) Ratio Calcium 7.8 L (8.7-10.3) mg/dL Assessment and Plan (1) Intertrochanteric fracture of right hip Current Visit: Yes Status: Acute Code(s): S72.141A - DISPLACED INTERTROCHANTERIC FRACTURE OF RIGHT FEMUR, INIT SNOMED Code(s): 372720166 (2) Hip fracture, right Current Visit: Yes Status: Acute Code(s): S72.001A - FRACTURE OF UNSP PART OF NECK OF RIGHT FEMUR, INIT SNOMED Code(s): 363488756 Plan: The clinical findings are discussed with the patient. We will continue with physical therapy. We will plan discharged to inpatient rehab when cleared medically and placement was arranged, likely tomorrow.
--- NOTE | 2022-08-06 14:52 | P.PN ---
Subjective Progress Note Date: 08/06/22 Patient seen and examined at bedside. No acute events overnight. Sitting in a chair. Patient reports well-controlled pain in her right hip. Urinary catheter discontinued yesterday patient still unable to void. Bladder scan shows 250 mL. General: nontoxic, no distress, appears at stated age Derm: warm, dry, dressing appeared clean, dry, intact Head: atraumatic, normocephalic, symmetric Eyes: EOMI, no lid lag, anicteric sclera ENT: Nose and ears atraumatic Neck: No thyromegaly, supple Mouth: no lip lesion, mucus membranes moist Cardiovascular: S1S2 reg, no murmur, no edema Lungs: clear to auscultation bilateral, no rhonchi, no rales, no wheeze, no accessory muscle use Abdominal: soft, nontender to palpation, no guarding, no appreciable organomegaly Ext: No contractures Neuro: No focal neurologic deficits Psych: Alert, oriented, appropriate affect #Urinary retention #Acute blood loss anemia #Hypertension #Hyponatremia #Hyperglycemia, prediabetes #Fall #Traumatic right intertrochanteric fracture status post surgery Based on my assessment of this patient, this patient meets a moderate complexity level of care. I have reviewed the following specialty development consultant notes: Orthopedic note 08/06, continue with physical therapy, plan discharged to inpatient rehab when placement arranged. I have reviewed the results of the following tests: CBC shows leukocytosis of 11.7 and hemoglobin is 7.4 along with platelet count of 50. Her hemoglobin was 8.6 yesterday. I have ordered the following tests: CBC ordered for tomorrow morning. I have discussed the care of this patient with the following independent historian: Discussed with nursing, patient has not been able to void since her urinary cath eter was discontinued. Bladder scan shows 250 mL. I have independently interpreted the following test below: None. I have discussed the management of this patient with the following physician: None. This patient has a moderate risk of morbidity due to the following reasons: Patient has a new diagnosis of traumatic right intertrochanteric fracture status post surgery with uncertain prognosis. She has been progressing quite well since her surgery. Pain appears to be well controlled at this time. She has not been able to urinate since her surgery. Patient encouraged to ambulate. She is encouraged hydration by mouth. Start Flomax 0.4 mg by mouth daily. Restart hydrochlorothiazide 12.5 mg by mouth daily. Attempt voiding trial. Repeat CBC tomorrow morning. Objective - Vital Signs Vital signs: Vital Signs Temp 97.9 F 08/06/22 13:52 Pulse 63 08/06/22 13:52 Resp 17 08/06/22 13:52 BP 106/63 08/06/22 13:52 Pulse Ox 96 08/06/22 13:52 FiO2 Intake & Output 08/05/22 08/06/22 08/06/22 18:59 06:59 18:59 Intake Total 118 Output Total 450 500 Balance -450 -500 118 Intake: Oral 118 Output: Urine 450 500 Other: Voiding Method Indwelling Catheter - Labs CBC & Chem 7: 08/06/22 12:27 08/06/22 04:43 Labs: Abnormal Lab Results - Last 24 Hours (Table) 08/06/22 08/06/22 Range/Units 04:43 12:27 WBC 11.7 H (3.8-10.6) k/uL RBC 2.40 L (3.80-5.40) m/uL Hgb 7.4 L (11.4-16.0) gm/dL Hct 22.3 L (34.0-46.0) % Plt Count 50 L (150-450) k/uL Neutrophils # 9.4 H (1.3-7.7) k/uL Sodium 132 L (135-145) mmol/L Anion Gap 5.40 L (10.00-18.00) mmol/L Creatinine 0.5 L (0.6-1.5) mg/dL BUN/Creatinine Ratio 34.60 H (12.00-20.00) Ratio Calcium 7.8 L (8.7-10.3) mg/dL
[2022-08-06] MEDS: HYDROcodone/APAP 5-325MG 1 EACH TAB PO PRN (16:59)
[2022-08-06] MEDS: TAMSULOSIN 0.4 MG CAP.ER.24H PO SCH (17:01)
--- NOTE | 2022-08-06 17:57 | CDI ---
Documentation Clarification Form Date: 08/06/2022 5:13:44 PM From: Obdulia Felton RN, CCDS Admit Date: 08/03/2022 8:21:00 AM Patient Name: Alice Rodriguez Visit Number: [id number] Discharge Date: ATTENTION: The Clinical Documentation Specialists (CDI) and [facility] Coding Staff appreciate your assistance in clarifying documentation. Please respond to the clarification below the line at the bottom and electronically sign. The CDI & [facility] Coding staff will review the response and follow-up if needed. Please note: Queries are made part of the Legal Health Record. If you have any questions, please contact the author of this message via ITS. Dr. Dawn Carrera Acute blood anemia is documented in the progress note on 08/06/22 and patient is postop right hip cephalomedullary nail procedure on 08/04/22 for an intertrochanteric hip fracture. Additional clarification is requested regarding the relationship, if any, that exists between the diagnosis and the procedure. Patients Admitting Diagnosis: Right hip intertrochanteric fracture. Post-Operative Diagnosis: same Procedure performed: right hip cephalomedullary nail Estimated Blood loss (ml): 200 History/Risk Factors: Hypertension, Hypothyroidism, Clinical Indicators: 87-year-old present with fall x-ray three-part right-sided intertrochanteric facture. 08/06 Vital signs: 115/62 75 18 98.1 96 % RA 08/03 HGB 11.8, HCT 34.7 08/04 HGB 8.6, HCT 26 08/06 HGB 7.4 HCT 22.3 Treatment: Monitor CBC 08/07 What relationship, if any, exists between the diagnosis of acute blood loss anemia and the procedure? [ ] Acute blood loss anemia is a complication of surgical procedure [x ] Acute blood loss anemia is an expected outcome of the surgical procedure [ ] Acute blood loss anemia is related to patients co-morbid condition(s) of [insert co-morbid dxs] & not a complication of the procedure [ ] Other please specify ____ [ ] Unable to determine (Template Last Revised: July 2020) MTDD
[2022-08-06 20:26] LABS: Glucose,Whole Blood 141 mg/dL (70-110)
[2022-08-06] MEDS: SENNOSIDES-DOCUSATE SODIUM 1 EACH TAB PO SCH (21:53)
[2022-08-07] MEDS: LACTATED RINGERS 1,000 ML IV SCH ×2 (03:26→12:39)
[2022-08-07 06:02] LABS: Glucose,Whole Blood 132 mg/dL (70-110)
[2022-08-07] MEDS: LEVOTHYROXINE 75 MCG TAB PO SCH (06:16)
[2022-08-07] MEDS: carvediloL 3.125 MG TAB PO SCH ×2 (06:16→09:07)
[2022-08-07] MEDS: HYDROmorphone 0.5 MG/0.5 ML SYRINGE IVP PRN ×2 (07:05→07:51)
[2022-08-07] MEDS ORDERED: hydroCHLOROthiazide 12.5 MG CAP PO SCH (09:00)
[2022-08-07] MEDS: ATORVASTATIN 40 MG TAB PO SCH (09:06)
[2022-08-07] MEDS: CHOLECALCIFEROL 25 MCG (1000 IU) TABLET PO SCH (09:06)
[2022-08-07] MEDS: amLODIPine 5 MG TAB PO SCH (09:06)
[2022-08-07] MEDS: ASPIRIN 81 MG PO SCH (09:07)
[2022-08-07] MEDS: HYDROcodone/APAP 5-325MG 1 EACH TAB PO PRN ×2 (09:08→14:56)
[2022-08-07] MEDS: LOSARTAN 50 MG TAB PO SCH (09:08)
[2022-08-07] MEDS: TAMSULOSIN 0.4 MG CAP.ER.24H PO SCH (09:08)
[2022-08-07] MEDS: CALCIUM CARBONATE 500 MG CHEWABLE PO SCH (09:15)
[2022-08-07 09:51] VITALS: BP 134/70; PULSE 73; RESP 18; TEMP 98
[2022-08-07 10:06] LABS: HCT 20.6 % (34.0-46.0); HGB 7.1 gm/dL (11.4-16.0); MCH 32.1 pg (25.0-35.0); MCHC 34.5 g/dL (31.0-37.0); MCV 92.9 fL (80.0-100.0); Mean Platelet Volume 11.1; RBC 2.21 m/uL (3.80-5.40); RDW 14.4 % (11.5-15.5); WBC 6.9 k/uL (3.8-10.6)
[2022-08-07 10:12] LABS: Platelet Count 39 k/uL (150-450)
[2022-08-07 10:17] LABS: African American GFR (CKD) >90 (>60 ml/min/1.73 sqM); Anion Gap 4 mmol/L; Blood Urea Nitrogen 15 mg/dL (7-17); Calcium 7.4 mg/dL (8.4-10.2); Carbon Dioxide 27 mmol/L (22-30); Chloride 101 mmol/L (98-107); Glucose 147 mg/dL (74-99); Non-African American GFR(CKD) 82 (>60 ml/min/1.73 sqM); Potassium 3.6 mmol/L (3.5-5.1); Sodium 132 mmol/L (137-145)
--- NOTE | 2022-08-07 13:33 | P.PN ---
Subjective Progress Note Date: 08/07/22 Patient seen and examined at bedside. No acute events overnight. Sitting in a chair. Patient reports well-controlled pain in her right hip. Able to void 950 cc over the past 24H. Her daughters at bedside stating that her mom has had a slightly depressed mood over the past 9 months. She was recently moved into an assisted living where she did not know anyone. She reports hopelessness especially after breaking her hip. She is unsure whether she will be able to recover from this illness. Patient denies any suicidal or homicidal ideation. General: nontoxic, no distress, appears at stated age Derm: warm, dry, dressing appeared clean, dry, intact Head: atraumatic, normocephalic, symmetric Eyes: EOMI, no lid lag, anicteric sclera ENT: Nose and ears atraumatic Neck: No thyromegaly, supple Mouth: no lip lesion, mucus membranes moist Cardiovascular: S1S2 reg, no murmur, no edema Lungs: clear to auscultation bilateral, no rhonchi, no rales, no wheeze, no accessory muscle use Ext: No contractures Neuro: No focal neurologic deficits Psych: Alert, oriented, appropriate affect #Acute blood loss anemia #Thrombocytopenia #Sad mood #Hypertension #Hyponatremia #Hyperglycemia, prediabetes #Fall #Traumatic right intertrochanteric fracture status post surgery Resolved: Urinary retention Based on my assessment of this patient, this patient meets a moderate complexity level of care. I have reviewed the following solar energy consultant and designer notes: Orthopedic note 08/06, continue with physical therapy, plan discharged to inpatient rehab when placement arranged. I have reviewed the results of the following tests: CBC shows hemoglobin of 7.1, platelet count of 39. She has no active signs of bleeding. I have ordered the following tests: CBC ordered to be repeated 3 days post discharge. I have discussed the care of this patient with the following independent historian: Case discussed with the daughter with regard to the patient's sad mood. I have independently interpreted the following test below: None. I have discussed the management of this patient with the following physician: None. This patient has a moderate risk of morbidity due to the following reasons: Patient has a new diagnosis of traumatic right intertrochanteric fracture status post surgery with uncertain prognosis. She has been progressing quite well since her surgery. Pain appears to be well controlled at this time. The case was discussed with psychiatry Dr. Garber. She denies any suicidal or homicidal ideation. Dr. Garber recommend starting Zoloft 25 mg by mouth daily. Repeat CBC within 3 days of discharge. She will need to see hematology in the outpatient setting for thrombocytopenia. She has not been on any heparin products. Objective - Vital Signs Vital signs: Vital Signs Temp 98.0 F 08/07/22 07:40 Pulse 73 08/07/22 07:40 Resp 18 08/07/22 07:40 BP 134/70 08/07/22 07:40 Pulse Ox 97 08/07/22 07:40 FiO2 Intake & Output 08/06/22 08/07/22 08/07/22 18:59 06:59 18:59 Intake Total 1036 Output Total 500 900 Balance 536 -900 Intake: Oral 1036 Output: Urine 500 900 Other: Voiding Method Toilet Indwelling Catheter - Labs CBC & Chem 7: 08/07/22 09:40 08/07/22 09:40 Labs: Abnormal Lab Results - Last 24 Hours (Table) 08/06/22 08/07/22 08/07/22 Range/Units 20:24 05:59 09:40 RBC 2.21 L (3.80-5.40) m/uL Hgb 7.1 L (11.4-16.0) gm/dL Hct 20.6 L (34.0-46.0) % Plt Count 39 L (150-450) k/uL Sodium (137-145) mmol/L Glucose (74-99) mg/dL POC Glucose (mg/dL) 141 H 132 H (70-110) mg/dL Calcium (8.4-10.2) mg/dL 08/07/22 Range/Units 09:40 RBC (3.80-5.40) m/uL Hgb (11.4-16.0) gm/dL Hct (34.0-46.0) % Plt Count (150-450) k/uL Sodium 132 L (137-145) mmol/L Glucose 147 H (74-99) mg/dL POC Glucose (mg/dL) (70-110) mg/dL Calcium 7.4 L (8.4-10.2) mg/dL
--- NOTE | 2022-08-07 13:40 | P.DS ---
Providers Date of admission: 08/03/22 08:21 Expected date of discharge: 08/07/22 Attending physician: Ingrid Emerson DO Consults: 08/03/22 08:05 Consult Physician Urgent Consulting Provider: Tamia Sierra Consult Reason/Comments: Medical management, surgical clearance Do you want consulting provider notified?: Yes 08/07/22 10:10 Consult Physician Routine Consulting Provider: Michael Garber Consult Reason/Comments: depressed mood Do you want consulting provider notified?: Yes Primary care physician: Meek Reagan MD - Discharge Diagnosis(es) (1) Fall Current Visit: Yes Status: Acute (2) Intertrochanteric fracture of right hip Current Visit: Yes Status: Acute Hospital Course: This is an 87-year-old female who sustained a fracture of her right hip after a fall. The patient presented for evaluation in the emergency room. After discussion and consideration patient elects to proceed with right hip cephalo- medullary nail. The patient is seen preoperatively by Dr. Emerson and medically cleared for surgery by internal medicine. Patient is admitted to [facility] on 08/03/2022 and right hip cephalo- medullary nail is performed on 08/04/2022. The procedure is performed without complication or sequelae. The patient is doing well postoperatively. Labs and vital signs are stable on day of discharge. On day of discharge patient's hip incision is healing well. There is minimal erythema. There is no drainage noted at this time. There is minimal soft tissue swelling to the hip and thigh. Patient has full foot and ankle motion without difficulty or pain. Calf is soft and nontender to palpation. Neurovascular status to the right lower extremity is intact. Patient is discharged to rehab in good condition. Please see med rec for accurate list of home medications. Patient Condition at Discharge: Stable Plan - Discharge Summary Discharge Rx Participant: Yes New Discharge Prescriptions: New Aspirin [Adult Low Dose Aspirin EC] 81 mg PO BID #1 tab HYDROcodone/APAP 5-325MG [Jasper 5-325] 1 tab PO Q6HR PRN #28 tab PRN Reason: Pain Losartan [Cozaar] 50 mg PO DAILY tab amLODIPine [Norvasc] 5 mg PO DAILY tab Sertraline [Zoloft] 25 mg PO DAILY tab Continue Diclofenac Sodium Gel [Voltaren Gel] 2 gm TOPICAL QID PRN PRN Reason: knees & left foot Newkirk-3/Dha/Epa/Fish Oil [Fish Oil 1,000 mg Softgel] 1 cap PO DAILY hydroCHLOROthiazide 12.5 mg PO DAILY carvediloL [Coreg] 3.125 mg PO BID Levothyroxine Sodium [Synthroid] 75 mcg PO DAILY Cholecalciferol [Vitamin D3 (25 Mcg = 1000 Iu)] 50 mcg PO DAILY Multivit-Min/Iron/Folic/Lutein [Centrum Silver Women Tablet] 1 tab PO DAILY Calcium Carbonate 1,000 mg PO DAILY Aspirin 81 mg PO DAILY Atorvastatin [Lipitor] 40 mg PO DAILY Discontinued Losartan Potassium [Cozaar] 100 mg PO DAILY Discharge Medication List Aspirin 81 mg PO DAILY 08/03/22 [History] Atorvastatin [Lipitor] 40 mg PO DAILY 08/03/22 [History] Calcium Carbonate 1,000 mg PO DAILY 08/03/22 [History] Cholecalciferol [Vitamin D3 (25 Mcg = 1000 Iu)] 50 mcg PO DAILY 08/03/22 [History] Diclofenac Sodium Gel [Voltaren Gel] 2 gm TOPICAL QID PRN 08/03/22 [History] Levothyroxine Sodium [Synthroid] 75 mcg PO DAILY 08/03/22 [History] Multivit-Min/Iron/Folic/Lutein [Centrum Silver Women Tablet] 1 tab PO DAILY 08/03/22 [History] Newkirk-3/Dha/Epa/Fish Oil [Fish Oil 1,000 mg Softgel] 1 cap PO DAILY 08/03/22 [History] carvediloL [Coreg] 3.125 mg PO BID 08/03/22 [History] hydroCHLOROthiazide 12.5 mg PO DAILY 08/03/22 [History] Aspirin [Adult Low Dose Aspirin EC] 81 mg PO BID #1 tab 08/05/22 [Rx] HYDROcodone/APAP 5-325MG [Jasper 5-325] 1 tab PO Q6HR PRN #28 tab 08/05/22 [Rx] Losartan [Cozaar] 50 mg PO DAILY tab 08/07/22 [Rx] Sertraline [Zoloft] 25 mg PO DAILY tab 08/07/22 [Rx] amLODIPine [Norvasc] 5 mg PO DAILY tab 08/07/22 [Rx] Follow up Appointment(s)/Referral(s): John Fay MD [STAFF PHYSICIAN] - 1 Week Ingrid Emerson DO [Doctor of Osteopathic Medicine] - 4 Weeks Meek Reagan MD [Primary Care Provider] - 1-2 days Ambulatory/Diagnostic Orders: Complete Blood Count w/diff [LAB.AMB] Time Frame: 3 Days, Location: None Selected Activity/Diet/Wound Care/Special Instructions: May bear wt as tolerated w walker. Keep Tegaderm dressing intact for 1 week. May shower. Repeat CBC in 3 days results to be followed up by PCP. Discharge Disposition: TRANSFER TO SNF/ECF
[2022-08-08] MEDS ORDERED: SERTRALINE 25 MG TAB PO SCH (09:00)
== END 2022-08-07 16:25 | DRG 481 ==
LOC: EC 07:00 → 4SSUR 08:21
PROVIDERS: ADMIT Orthopaedic Surgery Hand Surgery; ATTEND Orthopaedic Surgery Hand Surgery
PROC: 0QH636Z Insertion of Intramedullary Internal Fixation Device into Right Upper Femur, Percutaneous Approach (ICD-10-PCS; principal; 2022-08-04 12:15)
DX: S72.141A Displaced intertrochanteric fracture of right femur, initial encounter for closed fracture (principal); D62 Acute posthemorrhagic anemia; E87.1 Hypo-osmolality and hyponatremia; D69.6 Thrombocytopenia, unspecified; Z20.822 Contact with and (suspected) exposure to COVID-19; R00.1 Bradycardia, unspecified; E03.9 Hypothyroidism, unspecified; R73.03 Prediabetes; E78.5 Hyperlipidemia, unspecified; E87.6 Hypokalemia; F32.A Depression, unspecified; I10 Essential (primary) hypertension; M19.90 Unspecified osteoarthritis, unspecified site; H40.9 Unspecified glaucoma; R33.9 Retention of urine, unspecified; Z79.82 Long term (current) use of aspirin; Z79.890 Hormone replacement therapy; Z79.899 Other long term (current) drug therapy; Z85.820 Personal history of malignant melanoma of skin; Z86.73 Personal history of transient ischemic attack (TIA), and cerebral infarction without residual deficits; W01.0XXA Fall on same level from slipping, tripping and stumbling without subsequent striking against object, initial encounter; Z91.013 Allergy to seafood
CPT/HCPCS: 71045; 73502; 80048; 80053; 81003; 83036; 85025; 85027; 85610; 85730; 87635; 93005; 96374; 96375; 96376; 99285

== ENCOUNTER → 2022-08-22 | Outpatient (CLI) | payer MEDICARE ==
--- NOTE | 2022-08-22 11:45 | US ---
EXAMINATION TYPE: US venous doppler duplex LE DATE OF EXAM: 08/22/2022 11:25 AM COMPARISON: NONE CLINICAL HISTORY: R60.0 LOCALIZED EDEMA. Bilateral leg swelling SIDE PERFORMED: Bilateral TECHNIQUE: The lower extremity deep venous system is examined utilizing real time linear array sonog nimisha with graded compression, doppler sonography and color-flow sonography. VESSELS IMAGED: Common Femoral Vein Deep Femoral Vein Greater Saphenous Vein * Femoral Vein Popliteal Vein Small Saphenous Vein * Proximal Calf Veins (* superficial vessels) Grayscale, color doppler, spectral doppler imaging performed of the deep veins of the lower extremiti es. There is normal flow, compressibility, vascular waveforms. Right Leg: Appears negative for DVT Left Leg: Appears negative for DVT IMPRESSION: No ultrasound evidence for deep venous thrombosis of the bilateral lower extremities.
== END | disposition home or self-care (01) ==
LOC: RADUSWWP 10:58
PROVIDERS: ATTEND Internal Medicine
DX: R60.0 Localized edema (principal)
CPT/HCPCS: 93970

== ENCOUNTER → 2023-01-30 | Outpatient (CLI) | payer MEDICARE ==
--- NOTE | 2023-01-30 19:45 | US ---
EXAMINATION TYPE: US kidneys/renal and bladder DATE OF EXAM: 01/30/2023 COMPARISON: None CLINICAL INDICATION: Female, 87 years old with history of R31.1 MICROSCOPIC HEMATURIA N39.9 DISORDER OF URIN; recurrent UTIs and micro hematuria EXAM MEASUREMENTS: Right Kidney: 9.3x3.8x5.2 cm Left Kidney: 11.2x5.1x4.4 cm Right Kidney: WNL, Inferior pole obscured by bowel gas Left Kidney: WNL, superior and Inferior poles slightly obscured Bladder: wnl Bilateral Jets seen: Yes There is no evidence for hydronephrosis at this point in time. No nephrolithiasis is seen. No garima s are identified. The urinary bladder is anechoic. Bilateral ureteral jets are seen. exam slightly limited by rib shadows and bowel gas IMPRESSION: 1. Unremarkable renal ultrasound.
== END | disposition home or self-care (01) ==
LOC: RADUSWWP 15:23
PROVIDERS: ATTEND Urology
DX: R31.1 Benign essential microscopic hematuria (principal); N39.9 Disorder of urinary system, unspecified
CPT/HCPCS: 76770

== ENCOUNTER → 2023-03-28 | Outpatient (CLI) | payer MEDICARE ==
--- NOTE | 2023-04-01 12:20 | BD ---
EXAMINATION TYPE: Axial Bone Density DATE OF EXAM: 03/28/2023 CLINICAL HISTORY: 88 years old Female. ICD-10 CODE: M81.0 AGE RELATED OSTEO Height: 60.5in Weight: 132lb FRAX RISK QUESTIONS: History of Fracture in Adulthood: yes Secondary Osteoporosis: RISK FACTORS HISTORY OF: Surgery to Spine/Hip(right/left)/Wrist (right/left): right hip surgery When: 2022 Active: yes Postmenopausal woman: yes Take estrogen and/or progesterone medications: yes, none current How long: about 1 year Lost more than 2 inches in height since high school: yes Poor Health: good MEDICATIONS: Thyroid Medications: Which medication: Levothyroxine How Lon years Osteoporosis Medications: Which medication: in the past off and on How Long: Additional Medications: multivitamin, calcium Additional History: foot fx EXAM MEASUREMENTS: Bone mineral densitometry was performed using the [employer] System. Bone mineral density as measured about the Lumbar spine is: ----- L1-L4(G/cm2): 1.236 T Score Values are as follows: ----- L1: 0.7 ----- L2: 2.1 ----- L3: -0.7 ----- L4: -0.1 ----- L1-L4: 0.5 Z Score Values are as follows: ----- L1: 2.8 ----- L2: 4.3 ----- L3: 1.4 ----- L4: 2.1 ----- L1-L4: 2.6 First dexa at [facility] Bone mineral density about the L hip (g/cm2): 0.735 T Score values are as follows: L Neck: -1.7 L Total: -2.2 Z Score values are as follows: -----L Neck: 0.9 -----L Total: 0.4 FRAX%s: The graph provided illustrates a 17.9% chance for a major osteoporotic fx and a 5.1% chance f or the hips probability for fx in 10 years time. IMPRESSION: Normal (Values between +1 and -1 indicate normal bone mass). Consider repeating this study in 5 year s or sooner if there is some new clinical indication. NOTE: T-SCORE=SD OF THE YOUNG ADULT MEAN.
== END | disposition home or self-care (01) ==
LOC: RADBDWWP 12:48
PROVIDERS: ATTEND Internal Medicine
DX: M81.0 Age-related osteoporosis without current pathological fracture (principal); M85.852 Other specified disorders of bone density and structure, left thigh; Z78.0 Asymptomatic menopausal state
CPT/HCPCS: 77080

== ENCOUNTER → 2023-10-15 | Outpatient (CLI) | payer MEDICARE ==
--- NOTE | 2023-10-15 15:41 | XR ---
EXAMINATION TYPE: XR chest 2V DATE OF EXAM: 10/15/2023 COMPARISON: 08/03/2022 HISTORY: 88-year-old female R05.1, acute cough TECHNIQUE: PA and lateral views FINDINGS: Heart mildly enlarged. There was a normal limits. Mild interstitial density. Hyperinflation. No ricardo consolidation or pleural effusion. Increased AP chest diameter. Possible underlying rotator cuff tea rs. IMPRESSION: Mild cardiomegaly and COPD. Interstitial density could reflect superimposed acute bronchitis or a pro minent component of chronic bronchitis. No focal infiltrate seen.
== END | disposition home or self-care (01) ==
LOC: RADXRMAIN 14:46
PROVIDERS: ATTEND Internal Medicine
DX: J44.9 Chronic obstructive pulmonary disease, unspecified (principal); I51.7 Cardiomegaly
CPT/HCPCS: 71046

== ENCOUNTER → 2023-11-15 | Outpatient (CLI) | payer MEDICARE ==
--- NOTE | 2023-11-15 15:30 | XR ---
EXAMINATION TYPE: XR chest 2V DATE OF EXAM: 11/15/2023 COMPARISON: 10/15/2023 HISTORY: 88-year-old female J45.909 UNSPECIFIED ASTHMA, UNCOMPLICATED TECHNIQUE: Frontal and lateral views FINDINGS: Heart mildly enlarged. Mild interstitial prominence. There is rounded retrocardiac density. No ricardo consolidation or pleural effusion. An area of nodularity at the right lower lung may represent summat ion shadow versus underlying pulmonary nodule. Otherwise, no consolidation or pleural effusion. IMPRESSION: 1. Mild cardiomegaly. 2. COPD. 3. Either summation artifact versus a pulmonary nodule at the right base. CT chest can provide more d etailed assessment. 4. Suspect an underlying moderate to large hiatal hernia. Correlate for any associated symptoms.
== END | disposition home or self-care (01) ==
LOC: RADXRMAIN 14:59
PROVIDERS: ATTEND Internal Medicine
DX: I51.7 Cardiomegaly (principal); J44.89 Other specified chronic obstructive pulmonary disease
CPT/HCPCS: 71046

== ENCOUNTER 2024-01-11 17:40 | Emergency (ER) | payer MEDICARE ==
[2024-01-11 17:53] VITALS: RESP 18
[2024-01-11 19:04] VITALS: TEMP 98.1
--- NOTE | 2024-01-11 20:17 | XR ---
EXAMINATION TYPE: XR KUB DATE OF EXAM: 01/11/2024 7:43 PM CLINICAL INDICATION: Female, 88 years old with history of constipation; COMPARISON: None. TECHNIQUE: One radiographic view of the abdomen was obtained. FINDINGS: There is a moderate stool burden, otherwise, the bowel gas pattern is nonspecific without d ilated loops of small or large bowel. . Fecal material and gas are demonstrated throughout the colon and rectum. There is no evidence for organomegaly or pneumoperitoneum. The osseous structures are intact. No ab normal calcifications are present. Right hip fixation hardware partially visualized appears in approp riate position. Multilevel degeneration changes of spine. IMPRESSION: Moderate amount stool, Nonspecific bowel gas pattern without radiographic evidence for acute process.
[2024-01-11 21:31] LABS: Amorphous Sediment,Urine Rare /hpf; Appearance,Urine Clear (Clear); Bacteria,Urine Rare /hpf; Bilirubin,Urine Negative (Negative); Blood,Urine Negative (Negative); Color,Urine Colorless; Glucose,Urine (UA) Negative (Negative); Hyaline Casts,Urine 2 /lpf (0-2); Ketones,Urine Negative (Negative); Leukocyte Esterase,Urine Large (Negative); Mucus,Urine Rare /hpf; Nitrite,Urine Negative (Negative); Protein,Urine Negative (Negative); RBC,Urine 6 /hpf (0-5); Specific Gravity,Urine 1.013 (1.001-1.035); Squamous Epithelial Cell,Urine <1 /hpf (0-4); Urobilinogen,Urine <2.0 mg/dL (<2.0); WBC,Urine 43 /hpf (0-5)
--- NOTE | 2024-01-11 23:24 | ED ---
Female Urogenital HPI - General Chief complaint: Urogenital Stated complaint: urogenital Time Seen by Provider: 01/11/24 18:07 Source: patient Mode of arrival: ambulatory Limitations: no limitations - History of Present Illness Initial comments: 88-year-old female presenting with chief complaint of urinary retention and possible prolapsed rectum. Patient states that today she was not able to urinate for about 6 hours. She was feeling distended and having abdominal discomfort. When she arrived here she was able to urinate about 300 cc, however when she returned to the room nurse reports that she still had about 600 cc remaining in the bladder. Patient did report relief after urinating. Patient also believes she may have a prolapsed rectum. She noticed it 2 days ago. It is not painful. States that when she stands she feels the pressure and when she sits it seems to dissipate. States that normally she does not have constipation but she has had constipation over the last few days. She does have a history of cystocele and uses a pessary - Related Data Home Medications Medication Instructions Recorded Confirmed Aspirin 81 mg PO DAILY 08/03/22 08/03/22 Atorvastatin [Lipitor] 40 mg PO DAILY 08/03/22 08/03/22 Calcium Carbonate 1,000 mg PO DAILY 08/03/22 08/03/22 Cholecalciferol [Vitamin D3 (25 50 mcg PO DAILY 08/03/22 08/03/22 Mcg = 1000 Iu)] Diclofenac Sodium Gel [Voltaren 1% 2 gm TOPICAL QID PRN 08/03/22 08/03/22 Gel] Levothyroxine Sodium [Synthroid] 75 mcg PO DAILY 08/03/22 08/03/22 Multivit-Min/Iron/Folic/Lutein 1 tab PO DAILY 08/03/22 08/03/22 [Centrum Silver Women Tablet] [place]-3/Dha/Epa/Fish Oil [Fish Oil 1 cap PO DAILY 08/03/22 08/03/22 1,000 mg Softgel] carvediloL [Coreg] 3.125 mg PO BID 08/03/22 08/03/22 hydroCHLOROthiazide 12.5 mg PO DAILY 08/03/22 08/03/22 Previous Rx's Medication Instructions Recorded Aspirin [Adult Low Dose Aspirin EC] 81 mg PO BID #1 tab 08/05/22 HYDROcodone/APAP 5-325MG [[place] 1 tab PO Q6HR PRN #28 tab 08/05/22 5-325] Losartan [Cozaar] 50 mg PO DAILY tab 08/07/22 Sertraline [Zoloft] 25 mg PO DAILY tab 08/07/22 amLODIPine [Norvasc] 5 mg PO DAILY tab 08/07/22 Cephalexin [Keflex] 500 mg PO Q12HR 7 Days #14 cap 01/11/24 Allergies Allergy/AdvReac Type Severity Reaction Status Date / Time shellfish derived [Shellfish] Allergy Rash/Hives Verified 01/11/24 17:54 Review of Systems ROS Statement: Those systems with pertinent positive or pertinent negative responses have been documented in the HPI. ROS Other: All systems not noted in ROS Statement are negative. Past Medical History Past Medical History: CVA/TIA, Hypertension Additional Past Medical History / Comment(s): osteopoenia, hypothyroid, arthritis, Stroke in jun 2018. History of Any Multi-Drug Resistant Organisms: MRSA Date of last positivie culture/infection: 2019 MDRO Source:: N/A Additional Past Surgical History / Comment(s): Melanoma removed from face 2021 Past Anesthesia/Blood Transfusion Reactions: No Reported Reaction Past Psychological History: Depression Smoking Status: Never smoker Past Alcohol Use History: None Reported Past Drug Use History: None Reported General Exam Limitations: no limitations General appearance: alert, in no apparent distress Head exam: Present: atraumatic, normocephalic Eye exam: Present: normal appearance, EOMI Neck exam: Present: normal inspection. Absent: meningismus Respiratory exam: Absent: respiratory distress Cardiovascular Exam: Present: regular rate GI/Abdominal exam: Present: soft. Absent: distended, tenderness, guarding, rebound, rigid Rectal exam: Present: other (Prolapsed rectum, easily reducible) Neurological exam: Present: alert, oriented X3 Psychiatric exam: Present: normal affect, normal mood Skin exam: Present: warm, dry Course Vital Signs 01/11/24 01/11/24 01/12/24 17:47 19:02 01:03 Temperature 97.6 F 98.1 F Pulse Rate 59 L 56 L 59 L Respiratory 18 18 18 Rate Blood Pressure 166/73 178/81 166/69 O2 Sat by Pulse 97 97 97 Oximetry Medical Decision Making - Medical Decision Making Was pt. sent in by a medical professional or institution (Dr., PA, GLASS LINED TANK REPAIRER, urgent care, hospital, or fdc...) When possible be specific @ -No Did you speak to anyone other than the patient for history (EMS, parent, family, police, friend...)? What history was obtained from this source @ -Patient's daughter at bedside Did you review nursing and triage notes (agree or disagree)? Why? @ -I reviewed and agree with nursing and triage notes Were old charts reviewed (outside hosp., previous admission, EMS record, old EKG, old radiological studies, urgent care reports/EKG's, fdc records)? Report findings @ -No old charts were reviewed Differential Diagnosis (chest pain, altered mental status, abdominal pain women, abdominal pain men, vaginal bleeding, weakness, fever, dyspnea, syncope, headache, dizziness, GI bleed, back pain, seizure, CVA, palpatations, mental health, musculoskeletal)? @ -Differential includes constipation, abnormality of anatomy, obstruction, this is not an all-inclusive list EKG interpreted by me (3pts min.). @ -As above X-rays interpreted by me (1pt min.). @ -Moderate amount of stool on KUB. Nonspecific bowel gas pattern without radiographic evidence for acute process CT interpreted by me (1pt min.). @ -None done U/S interpreted by me (1pt. min.). @ -None done What testing was considered but not performed or refused? (CT, X-rays, U/S, labs)? Why? @ -None What meds were considered but not given or refused? Why? @ -None Did you discuss the management of the patient with other professionals (professionals i.e. , PA, GLASS LINED TANK REPAIRER, lab, RT, psych nurse, social director, digital project manager, teacher, supply officer, showcase trimmer)? Give summary @ -No Was smoking cessation discussed for >3mins.? @ -No Was critical care preformed (if so, how long)? @ -No Were there social determinants of health that impacted care today? How? (Homelessness, low income, unemployed, alcoholism, drug addiction, transportation, low edu. Level, literacy, decrease access to med. care, penitentiary, rehab)? @ -No Was there de-escalation of care discussed even if they declined (Discuss DNR or withdrawal of care, Hospice)? DNR status @ -No What co-morbidities impacted this encounter? (DM, HTN, Smoking, COPD, CAD, Cancer, CVA, ARF, Chemo, Hep., AIDS, mental health diagnosis, sleep apnea, morbid obesity)? @ -None Was patient admitted / discharged? Hospital course, mention meds given and route, prescriptions, significant lab abnormalities, going to OR and other pertinent info. @ -88-year-old female presenting with chief complaint of urinary retention and possible prolapsed rectum. When she arrived here patient is able to urinate however she does take multiple attempts to completely empty her bladder. On exam patient does have a prolapsed rectum that is easily reducible. She is not in any pain. Urine shows large leukocytes with 43 WBCs and 6 RBCs. Patient's daughter states that the patient always has white cells in her urine due to previous frequent UTIs. Urine was sent for culture. I will still send the patient Keflex for what appears to be a UTI. KUB x-ray does show signs of constipation. I believe that the constipation may be contributing to the patient's urinary retention. Given this we will attempt an enema here. Patient does have some release with the enema. On reevaluation the patient is hypertensive, she has not taken her evening blood pressure medication. She is given 10 mg of hydralazine and on reassessment blood pressure has improved. Patient is well and is requesting to go home. She will resume a high-fiber diet and start taking Colace. She will follow-up with her PCP soon is provided with general surgeon follow-up for prolapsed rectum. Discharged. Follow-up with PCP. Report back to ER with any new or worsening symptoms. Discussed return parameters and answered all questions. Patient conveyed verbal understanding and agreed to the plan. I discussed this case in detail with my attending Dr. Malik Undiagnosed new problem with uncertain prognosis? @ -No Drug Therapy requiring intensive monitoring for toxicity (Heparin, Nitro, Insulin, Cardizem)? @ -No Were any procedures done? @ -No Diagnosis/symptom? @ -Constipation, prolapsed rectum, UTI Acute, or Chronic, or Acute on Chronic? @ -Acute Uncomplicated (without systemic symptoms) or Complicated (systemic symptoms)? @ -Uncomplicated Side effects of treatment? @ -No Exacerbation, Progression, or Severe Exacerbation? @ -No Poses a threat to life or bodily function? How? (Chest pain, [place], [place], pneumonia, PE, COPD, DKA, ARF, appy, cholecystitis, CVA, Diverticulitis, Homicidal, Suicidal, threat to staff... and all critical care pts) @ -No immediate threat - Lab Data Lab Results 01/11/24 Range/Units 19:25 Urine Color Colorless Urine Appearance Clear (Clear) Urine pH 7.0 (5.0-8.0) Ur Specific [place] 1.013 (1.001-1.035) Urine Protein Negative (Negative) Urine Glucose (UA) Negative (Negative) Urine Ketones Negative (Negative) Urine Blood Negative (Negative) Urine Nitrite Negative (Negative) Urine Bilirubin Negative (Negative) Urine Urobilinogen <2.0 (<2.0) mg/dL Ur Leukocyte Esterase Large H (Negative) Urine RBC 6 H (0-5) /hpf Urine WBC 43 H (0-5) /hpf Urine WBC Clumps Rare H (None) /hpf Ur Squamous Epith Cells <1 (0-4) /hpf Amorphous Sediment Rare H (None) /hpf Urine Bacteria Rare H (None) /hpf Hyaline Casts 2 (0-2) /lpf Urine Mucus Rare H (None) /hpf Disposition Clinical Impression: Rectal prolapse, Constipation Disposition: HOME SELF-CARE Condition: Good Instructions (If sedation given, give patient instructions): Constipation (ED), Urinary Tract Infection in Women (ED), Rectal Prolapse (ED) Additional Instructions: Follow-up with your PCP and general surgery. Report back to ER with any new or worsening symptoms. Prescriptions: Cephalexin [Keflex] 500 mg PO Q12HR 7 Days #14 cap Is patient prescribed a controlled substance at d/c from ED?: No Referrals: Meek Reagan DO [Primary Care Provider] - 1-2 days Taras lOivier MD [Medical Doctor] - 1-2 days Ghulam Green MD [STAFF PHYSICIAN] - 1-2 days Hortencia Gao MD [STAFF PHYSICIAN] - 1-2 days Sharda Jeffries DO [Doctor of Osteopathic Medicine] - 1-2 days Time of Disposition: 23:17
[2024-01-12] MEDS: hydrALAZINE HCL 20 MG/ML 1 ML VIAL IVP STA (00:38)
[2024-01-12 01:05] VITALS: BP 166/69; PULSE 59
== END 2024-01-12 01:05 | disposition home or self-care (01) ==
LOC: EC 17:40
DX: K62.3 Rectal prolapse (principal); K59.00 Constipation, unspecified; N39.0 Urinary tract infection, site not specified; Z86.73 Personal history of transient ischemic attack (TIA), and cerebral infarction without residual deficits; Z91.013 Allergy to seafood
CPT/HCPCS: 51798; 81001; 87086; 74018; 99284; 96374; J0360

== ENCOUNTER 2024-01-13 12:19 | Emergency (ER) | payer MEDICARE ==
--- NOTE | 2024-01-13 13:14 | ED ---
Female Urogenital HPI - General Chief complaint: Urogenital Stated complaint: Urogenital Time Seen by Provider: 01/13/24 13:13 Source: patient, family, RN notes reviewed Mode of arrival: ambulatory Limitations: no limitations - History of Present Illness Initial comments: 88-year-old female presented to the ER with a chief complaint urinary retention. Patient was seen here on 01/10/24, for similar complaint. Bladder scan at that time showing retention over 300 mL. Patient was able to urinate with output around 300 mL. Patient was discharged at that time. Patient states today she went to urinate and only was able to get a couple drops out. Patient states she has been experiencing rectal prolapse with mild constipation. Patient has tried enemas with some relief. Patient is reporting a pressure sensation to her lower abdomen. She denies any sharp pain, nausea, vomiting, fevers or chills. No other complaints. - Related Data Home Medications Medication Instructions Recorded Confirmed Aspirin 81 mg PO DAILY 08/03/22 08/03/22 Atorvastatin [Lipitor] 40 mg PO DAILY 08/03/22 08/03/22 Calcium Carbonate 1,000 mg PO DAILY 08/03/22 08/03/22 Cholecalciferol [Vitamin D3 (25 50 mcg PO DAILY 08/03/22 08/03/22 Mcg = 1000 Iu)] Diclofenac Sodium Gel [Voltaren 1% 2 gm TOPICAL QID PRN 08/03/22 08/03/22 Gel] Levothyroxine Sodium [Synthroid] 75 mcg PO DAILY 08/03/22 08/03/22 Multivit-Min/Iron/Folic/Lutein 1 tab PO DAILY 08/03/22 08/03/22 [Centrum Silver Women Tablet] [place]-3/Dha/Epa/Fish Oil [Fish Oil 1 cap PO DAILY 08/03/22 08/03/22 1,000 mg Softgel] carvediloL [Coreg] 3.125 mg PO BID 08/03/22 08/03/22 hydroCHLOROthiazide 12.5 mg PO DAILY 08/03/22 08/03/22 Previous Rx's Medication Instructions Recorded Aspirin [Adult Low Dose Aspirin EC] 81 mg PO BID #1 tab 08/05/22 HYDROcodone/APAP 5-325MG [[place] 1 tab PO Q6HR PRN #28 tab 08/05/22 5-325] Losartan [Cozaar] 50 mg PO DAILY tab 08/07/22 Sertraline [Zoloft] 25 mg PO DAILY tab 08/07/22 amLODIPine [Norvasc] 5 mg PO DAILY tab 08/07/22 Cephalexin [Keflex] 500 mg PO Q12HR 7 Days #14 cap 01/11/24 Allergies Allergy/AdvReac Type Severity Reaction Status Date / Time shellfish derived [Shellfish] Allergy Rash/Hives Verified 01/13/24 12:32 Review of Systems ROS Statement: Those systems with pertinent positive or pertinent negative responses have been documented in the HPI. ROS Other: All systems not noted in ROS Statement are negative. Past Medical History Past Medical History: CVA/TIA, Hypertension Additional Past Medical History / Comment(s): osteopoenia, hypothyroid, arthritis, Stroke in jun 2018. History of Any Multi-Drug Resistant Organisms: MRSA Date of last positivie culture/infection: 2019 MDRO Source:: N/A Additional Past Surgical History / Comment(s): Melanoma removed from face 2021 Past Anesthesia/Blood Transfusion Reactions: No Reported Reaction Past Psychological History: Depression Smoking Status: Never smoker Past Alcohol Use History: None Reported Past Drug Use History: None Reported General Exam Limitations: no limitations General appearance: alert, in no apparent distress Respiratory exam: Present: normal lung sounds bilaterally. Absent: respiratory distress, wheezes, rales, rhonchi, stridor Cardiovascular Exam: Present: regular rate, normal rhythm, normal heart sounds. Absent: systolic murmur, diastolic murmur, rubs, gallop, clicks GI/Abdominal exam: Present: soft, tenderness ("pressure" suprapubic), normal bowel sounds Extremities exam: Present: normal inspection, full ROM, normal capillary refill. Absent: tenderness, pedal edema, joint swelling, calf tenderness Neurological exam: Present: alert, oriented X3, CN II-XII intact Skin exam: Present: warm, dry, intact, normal color. Absent: rash Course Vital Signs 01/13/24 12:26 Temperature 97.8 F Pulse Rate 58 L Respiratory 17 Rate Blood Pressure 141/68 O2 Sat by Pulse 98 Oximetry Medical Decision Making - Medical Decision Making Was pt. sent in by a medical professional or institution (, PA, FINAL RAIL CUTTER, urgent care, hospital, or senior living...) When possible be specific @ -No Did you speak to anyone other than the patient for history (EMS, parent, family, police, friend...)? What history was obtained from this source @ -Daughter aiding in HPI and past medical history. Did you review nursing and triage notes (agree or disagree)? Why? @ -I reviewed and agree with nursing and triage notes Were old charts reviewed (outside hosp., previous admission, EMS record, old EKG, old radiological studies, urgent care reports/EKG's, senior living records)? Report findings @ -No old charts were reviewed Differential Diagnosis (chest pain, altered mental status, abdominal pain women, abdominal pain men, vaginal bleeding, weakness, fever, dyspnea, syncope, headache, dizziness, GI bleed, back pain, seizure, CVA, palpatations, mental health, musculoskeletal)? @ -Differential Abdominal Pain Women:Appendicitis, Cholecystitis, divert iculosis, ischemic bowel, pancreatitis, hepatitis, UTI, gastroenteritis, AAA, incarcerated hernia, bowel obstruction, constipation, inflammatory bowel, hepatitis, peptic ulcer disease, splenic infarction, perforated viscus, vulvitis, ovarian torsion, PID, kidney stone, placenta abruption, this is not meant to be an all-inclusive list EKG interpreted by me (3pts min.). @ -None X-rays interpreted by me (1pt min.). @ -None done CT interpreted by me (1pt min.). @ -None done U/S interpreted by me (1pt. min.). @ -None done What testing was considered but not performed or refused? (CT, X-rays, U/S, labs)? Why? @ -None What meds were considered but not given or refused? Why? @ -None Did you discuss the management of the patient with other professionals (professionals i.e. , PA, FINAL RAIL CUTTER, lab, RT, psych nurse, bilingual social worker, car lubricator, teacher, hearing officer, casework manager)? Give summary @ -No Was smoking cessation discussed for >3mins.? @ -No Was critical care preformed (if so, how long)? @ -No Were there social determinants of health that impacted care today? How? (Homelessness, low income, unemployed, alcoholism, drug addiction, transportation, low edu. Level, literacy, decrease access to med. care, usp, rehab)? @ -No Was there de-escalation of care discussed even if they declined (Discuss DNR or withdrawal of care, Hospice)? DNR status @ -No What co-morbidities impacted this encounter? (DM, HTN, Smoking, COPD, CAD, Cancer, CVA, ARF, Chemo, Hep., AIDS, mental health diagnosis, sleep apnea, morbid obesity)? @ -None Was patient admitted / discharged? Hospital course, mention meds given and route, prescriptions, significant lab abnormalities, going to OR and other pertinent info. @ -Discharge. 88-year-old female presented to the ER with a chief complaint of urinary retention. Patient seen here on 01/11/24 for similar complaint. Patient was able to urinate on her own and was discharged after treatment for constipation with enema. On evaluation, patient resting comfortably in exam room no signs of acute distress. Today bladder scan is showing greater than 840 cc of retained urine. I offered for patient to try urinating on her own, she refused and states she would like a Dueñas placed. Dueñas was placed draining greater than 600 cc of pale yellow urine. Urinalysis obtained and negative for evidence of infection. No active rectal prolapse on exam. Patient reporting improvement of "pressure" sensation after Dueñas insertion. Patient will be discharged with Dueñas in place with follow-up to urology. Daughter at bedside reports she is follow-up with Dr. Sarika chang. Strict return parameters discussed. Daughter and patient verbally expressed understanding and agreed with care plan. Case discussed with ED attending, Dr. Barraza. Undiagnosed new problem with uncertain prognosis? @ -No Drug Therapy requiring intensive monitoring for toxicity (Heparin, Nitro, Insulin, Cardizem)? @ -No Were any procedures done? @ -No Diagnosis/symptom? @ -Rectal prolapse/urinary retention Acute, or Chronic, or Acute on Chronic? @ -Acute Uncomplicated (without systemic symptoms) or Complicated (systemic symptoms)? @ -Uncomplicated Side effects of treatment? @ -No Exacerbation, Progression, or Severe Exacerbation? @ -No Poses a threat to life or bodily function? How? (Chest pain, [place], [place], pneumonia, PE, COPD, DKA, ARF, appy, cholecystitis, CVA, Diverticulitis, Homicidal, Suicidal, threat to staff... and all critical care pts) @ -No - Lab Data Lab Results 09/02/24 Range/Units 13:28 Urine Color Colorless Urine Appearance Clear (Clear) Urine pH 7.0 (5.0-8.0) Ur Specific [place] 1.006 (1.001-1.035) Urine Protein Negative (Negative) Urine Glucose (UA) Negative (Negative) Urine Ketones Negative (Negative) Urine Blood Negative (Negative) Urine Nitrite Negative (Negative) Urine Bilirubin Negative (Negative) Urine Urobilinogen <2.0 (<2.0) mg/dL Ur Leukocyte Esterase Negative (Negative) Disposition Clinical Impression: Rectal prolapse, Urinary retention Disposition: HOME SELF-CARE Condition: Stable Instructions (If sedation given, give patient instructions): Acute Urinary Retention in Women (ED) Additional Instructions: Follow-up with Dr. Baum and PCP. Return to the ER for any new or worsening symptoms. Is patient prescribed a controlled substance at d/c from ED?: No Referrals: Meek Reagan DO [Primary Care Provider] - 1-2 days Stephon Baum MD [STAFF PHYSICIAN] - 1-2 days Time of Disposition: 14:07
[2024-01-13 13:45] LABS: Appearance,Urine Clear (Clear); Bilirubin,Urine Negative (Negative); Blood,Urine Negative (Negative); Color,Urine Colorless; Glucose,Urine (UA) Negative (Negative); Ketones,Urine Negative (Negative); Leukocyte Esterase,Urine Negative (Negative); Nitrite,Urine Negative (Negative); Protein,Urine Negative (Negative); Specific Gravity,Urine 1.006 (1.001-1.035); Urobilinogen,Urine <2.0 mg/dL (<2.0)
[2024-01-13 15:15] VITALS: BP 126/68; PULSE 60; RESP 18; TEMP 98.4
== END 2024-01-13 15:17 | disposition home or self-care (01) ==
LOC: EC 12:19
CPT/HCPCS: 51702; 51798; 81003; 99283

== ENCOUNTER → 2024-02-04 | Outpatient (CLI) | payer MEDICARE ==
--- NOTE | 2024-02-05 00:11 | XR ---
EXAMINATION TYPE: XR chest 2V DATE OF EXAM: 02/04/2024 COMPARISON: 11/15/2023 INDICATION: Abnormal chest x-ray TECHNIQUE: Frontal and lateral views of the chest are obtained. FINDINGS: The heart size is normal. Retrocardiac density may be a moderate-sized hiatal hernia. The pulmonary vasculature is normal. The lungs are clear. IMPRESSION: 1. Hiatal hernia. 2. No acute pulmonary process. [facility], , 02/05/2024 12:08 AM
== END | disposition home or self-care (01) ==
LOC: RADXRMAIN 14:39
PROVIDERS: ATTEND Internal Medicine
DX: R93.89 Abnormal findings on diagnostic imaging of other specified body structures
CPT/HCPCS: 71046